=== PATIENT | male | born 1965 | race Caucasian/White ===

== ENCOUNTER 2019-08-19 08:18 | Outpatient (REF) | payer BC, SELFPAY ==
[2019-08-19 20:33] LABS: HGB 15.6 g/dL (13.5-17.5); Mean Corp. HGB Concentration 33.2 g/dL (32.0-36.0); Mean Corpuscular Volume 96.3 fL (80-95); Mean Platelet Volume 9.6 fL (8.0-11.0); Platelet Count 264 x1000/uL (130-400); RBC 4.88 m/cumm (4.50-6.00); RBC Distribution Width 13.2 % (11.8-14.1); White Blood Cell Count 5.45 k/cumm (4.4-10.8)
[2019-08-19 20:46] LABS: Hemoglobin A1C 5.4 % (3.8-5.6)
[2019-08-19 20:58] LABS: ALT 34 U/L (16-63); AST 20 U/L (15-37); Albumin 4.1 g/dL (3.4-5.0); Alkaline Phosphatase 61 U/L (46-116); Anion Gap 8.2 mmol/L (3-11); BUN 15 mg/dL (7-18); Bilirubin, Total 1.2 mg/dL (0.2-1.0); CO2 28.8 mmol/L (21.0-32.0); CREATININE 1.15 mg/dL (0.70-1.30); Calcium 9.1 mg/dL (8.5-10.1); Chloride 103 mmol/L (98-107); Glucose 95 mg/dL (74-106); Potassium 4.5 mmol/L (3.5-5.1); Sodium 140 mmol/L (136-145); Total Protein 7.7 g/dL (6.4-8.2)
[2019-08-19 21:12] LABS: Calculated LDL 201 mg/dL (<100); Cholesterol 287 mg/dL (<200); HDL Cholesterol 45 mg/dL (40-60); Triglyceride 205 mg/dL (<150)
== END 2019-08-19 08:38 ==
LOC: NCHCN 08:18
PROVIDERS: PCP Internal Medicine; Visit Provider Internal Medicine
DX: R42 Dizziness and giddiness (principal); E66.9 Obesity, unspecified
CPT/HCPCS: 80053; 80061; 85027; 83036

== ENCOUNTER 2020-02-27 13:24 | Outpatient (REF) | payer BC, SELFPAY ==
[2020-02-27 21:39] LABS: Calculated LDL 91 mg/dL (<100); Cholesterol 154 mg/dL (<200); HDL Cholesterol 53 mg/dL (40-60); Triglyceride 53 mg/dL (<150)
== END 2020-02-27 13:44 ==
LOC: NCHCN 13:24
PROVIDERS: PCP Internal Medicine; Visit Provider Internal Medicine
DX: F10.10 Alcohol abuse, uncomplicated (principal); E78.5 Hyperlipidemia, unspecified; E66.9 Obesity, unspecified; F52.21 Male erectile disorder
CPT/HCPCS: 80061

== ENCOUNTER 2020-07-02 19:57 | Outpatient (REF) | payer BC, SELFPAY ==
[2020-07-02 22:30] LABS: PSA, Diagnostic 0.4 ng/mL (0.0-3.5)
== END 2020-07-02 19:58 | disposition home or self-care (01) ==
LOC: NCHCN 19:57
PROVIDERS: PCP Internal Medicine; Visit Provider Internal Medicine
DX: R39.89 Other symptoms and signs involving the genitourinary system (principal)
CPT/HCPCS: 84153

== ENCOUNTER 2021-02-25 14:25 | Outpatient (REF) | payer BC, SELFPAY ==
[2021-02-25 15:26] LABS: ALT 48 U/L (16-63); AST 30 U/L (15-37); Albumin 4.1 g/dL (3.4-5.0); Alkaline Phosphatase 60 U/L (46-116); Anion Gap 7.7 mmol/L (3-11); BUN 16 mg/dL (7-18); CO2 28.3 mmol/L (21.0-32.0); Calcium 8.7 mg/dL (8.5-10.1); Calculated LDL 79 mg/dL (<100); Chloride 104 mmol/L (98-107); Cholesterol 137 mg/dL (<200); Glucose 101 mg/dL (74-106); HDL Cholesterol 47 mg/dL (40-60); Potassium 4.6 mmol/L (3.5-5.1); Sodium 140 mmol/L (136-145); Total Protein 7.2 g/dL (6.4-8.2); Triglyceride 57 mg/dL (<150)
== END 2021-02-25 14:26 | disposition home or self-care (01) ==
LOC: NCHCN 14:25
PROVIDERS: PCP Internal Medicine; Visit Provider Internal Medicine
DX: E78.5 Hyperlipidemia, unspecified (principal); R17 Unspecified jaundice; F10.10 Alcohol abuse, uncomplicated
CPT/HCPCS: 80053; 80061

== ENCOUNTER 2022-02-27 09:44 | Outpatient (REF) | payer BC, SELFPAY ==
[2022-02-27 15:43] LABS: Hemoglobin A1C 5.7 % (<5.7)
[2022-02-27 16:23] LABS: ALT 51 U/L (16-63); AST 28 U/L (15-37); Albumin 3.9 g/dL (3.4-5.0); Alkaline Phosphatase 65 U/L (46-116); Anion Gap 7.7 mmol/L (3-11); BUN 20 mg/dL (7-18); Bilirubin, Total 0.8 mg/dL (0.2-1.0); CO2 28.3 mmol/L (21.0-32.0); Calculated LDL 86 mg/dL (<100); Chloride 107 mmol/L (98-107); Cholesterol 147 mg/dL (<200); Estimated GFR 87.78 (mL/min/1.73m2); Glucose 105 mg/dL (74-106); HDL Cholesterol 51 mg/dL (40-60); Potassium 4.5 mmol/L (3.5-5.1); Sodium 143 mmol/L (136-145); Total Protein 7.6 g/dL (6.4-8.2); Triglyceride 54 mg/dL (<150)
== END 2022-02-27 09:45 | disposition home or self-care (01) ==
LOC: NCHCN 09:44
PROVIDERS: PCP Internal Medicine; Visit Provider Internal Medicine
DX: E78.5 Hyperlipidemia, unspecified (principal); R73.01 Impaired fasting glucose
CPT/HCPCS: 80053; 80061; 83036

== ENCOUNTER 2023-03-05 16:15 | Outpatient (REF) | payer BC, SELFPAY ==
[2023-03-05 15:54] LABS: ALT 47 U/L (16-63); AST 31 U/L (15-37); Albumin 3.9 g/dL (3.4-5.0); Alkaline Phosphatase 70 U/L (46-116); Anion Gap 7.5 mmol/L (3-11); BUN 14 mg/dL (7-18); Bilirubin, Total 0.7 mg/dL (0.2-1.0); CO2 26.5 mmol/L (21.0-32.0); Calcium 9.3 mg/dL (8.5-10.1); Chloride 102 mmol/L (98-107); Estimated GFR 87.24 (mL/min/1.73m2); Glucose 100 mg/dL (74-106); Potassium 4.4 mmol/L (3.5-5.1); Sodium 136 mmol/L (136-145); Total Protein 7.9 g/dL (6.4-8.2)
--- OUTSIDE RECORDS SUMMARY | 2023-03-05 16:19 | XMS_ITS | CCD ---
Author Name Unknown Address [address] [place] [address] [phone] Organization Unknown Address [address] [place] [address] [phone] Care Team Providers Care Tax Map Technician Name Role Phone MCKENNA PARRA MD Attending Physician [phone] ADELA AMAYA Er Physician 1 0 Vital Signs Unknown or Not Available. Allergies Allergy Code Allergy Type Reaction Status NKA - NO KNOWN ALLERGIES 0 Drug allergy Active Procedures Unknown or Not Available. History of Immunizations Unknown or Not Available. Problems Unknown or Not Available. Results Unknown or Not Available. Active Medications Unknown or Not Available. Medications Administered During Visit Unknown or Not Available. Encounters Encounter Diagnosis Diagnosis Code Start Date Toxic effect of venom of bee s, accidental (unintentional), initial encounter [id number] 12/12/2020 Social History Smoking Status Code Start Date End Date Never smoker [id number] Patient Decision Aids Unknown or Not Available. Discharge Instructions You were admitted to [facility] on 12/12/2020 11:49 with a principal diagnosis of Toxic effect of venom of bees, accidental (unintentional), initial encounter You were discharged from [facility] on 12/12/2020 13:59 Should you have any questions prior to discharge, please contact a member of your healthcare team. If you have left the hospital and have any questions, please contact your primary care physician. Chief Complaint and Reason For Visit Chief Complaint Date of Onset ALLERGIC REACTION Function Status Unknown or Not Available. Plan of Care Unknown or Not Available. Referral/Transition of Care Unknown or Not Available.
[2023-03-05 16:27] LABS: Hemoglobin A1C 5.6 % (<5.7)
[2023-03-06 09:37] LABS: Hepatitis C Ab w Rflx HCV PCR Negative (Negative)
== END 2023-03-05 16:16 | disposition home or self-care (01) ==
LOC: NCHCN 16:15
PROVIDERS: PCP Internal Medicine; Visit Provider Internal Medicine
DX: R73.03 Prediabetes (principal); R74.8 Abnormal levels of other serum enzymes; R17 Unspecified jaundice; E78.5 Hyperlipidemia, unspecified; Z00.00 Encounter for general adult medical examination without abnormal findings
CPT/HCPCS: 80053; 86803; 83036

== ENCOUNTER 2024-03-05 07:40 | Outpatient (REF) | payer BC, SELFPAY ==
[2024-03-05 16:09] LABS: ALT 38 U/L (16-63); AST 27 U/L (15-37); Albumin 3.9 g/dL (3.4-5.0); Alkaline Phosphatase 61 U/L (46-116); Anion Gap 6.9 mmol/L (3-11); BUN 18 mg/dL (7-18); Bilirubin, Total 0.84 mg/dL (0.2-1.0); CO2 29.1 mmol/L (21.0-32.0); CREATININE 1.1 mg/dL (0.70-1.30); Calcium 9.3 mg/dL (8.5-10.1); Chloride 108 mmol/L (98-107); Estimated GFR 77.33 (mL/min/1.73m2); Glucose 91 mg/dL (74-106); Potassium 4.9 mmol/L (3.5-5.1); Sodium 144 mmol/L (136-145); Total Protein 7.9 g/dL (6.4-8.2)
[2024-03-05 16:37] LABS: Hemoglobin A1C 5.4 % (<5.7)
== END 2024-03-05 07:41 | disposition home or self-care (01) ==
LOC: NCHCN 07:40
PROVIDERS: PCP Internal Medicine; Visit Provider Internal Medicine
DX: R73.03 Prediabetes (principal); R74.01 Elevation of levels of liver transaminase levels
CPT/HCPCS: 80053; 83036

== ENCOUNTER 2025-03-09 14:34 | Outpatient (REF) | payer BC, SELFPAY ==
[2025-03-09 14:42] LABS: HCT 44.0 % (40.0-50.0); HGB 14.4 g/dL (13.5-17.5); MCH 31.8 pg (27.0-33.0); MCHC 32.7 % (32.0-36.0); MCV 97 fL (80-95); MPV 9.6 fL (8.0-11.0); Platelet Count 211 10^3/uL (130-400); RBC 4.53 10^6/uL (4.36-5.78); RDW 13.1 % (11.8-14.1); RDW-SD 46.7 fL; WBC 5.11 10^3/uL (4.4-10.8)
[2025-03-09 15:14] LABS: ALT 44 U/L (16-63); AST 31 U/L (15-37); Albumin 3.7 g/dL (3.4-5.0); Alkaline Phosphatase 55 U/L (46-116); Anion Gap 7.9 mmol/L (3-11); BUN 11 mg/dL (7-18); Bilirubin, Total 1.0 mg/dL (0.2-1.0); CO2 28.1 mmol/L (21.0-32.0); Calcium 8.4 mg/dL (8.5-10.1); Chloride 105 mmol/L (98-107); Cholesterol 142 mg/dL (<200); Glucose 94 mg/dL (74-106); HDL Cholesterol 49 mg/dL (>or=40); Potassium 4.1 mmol/L (3.5-5.1); Sodium 141 mmol/L (136-145); Total Protein 7.4 g/dL (6.4-8.2)
[2025-03-10 00:20] LABS: PSA, Screening 0.4 ng/mL (<=4.5)
== END 2025-03-09 14:35 | disposition home or self-care (01) ==
LOC: NCHCN 14:34
PROVIDERS: PCP Internal Medicine; Visit Provider Internal Medicine
DX: Z12.5 Encounter for screening for malignant neoplasm of prostate (principal); R73.03 Prediabetes; E78.5 Hyperlipidemia, unspecified
CPT/HCPCS: 80053; 80061; 84153; 85027